=== PATIENT | female | born 1990 | race Caucasian/White ===

== ENCOUNTER → 2017-01-04 | Outpatient (CLI) | payer BC ==
[~2017-01-04] MED LIST: DOXYCYCLINE 10100 MG PO; FERROUS SU325 MG/TAB PO; FLAGYL500 MG PO; IBU800 M1 PO; NORCO 325 MG-51 TAB PO; PRENATAL1 TA7 PO; TUMS500 MG; TYLENOL PM EXTR1 TA1
== END ==
LOC: MC.RAD 12-28 09:45
DX: N63 Unspecified lump in breast (principal)